=== PATIENT | female | born 1940 | race Caucasian/White ===

== ENCOUNTER 2018-06-26 07:15 | Inpatient (IN) | payer OTHER ==
[~2018-06-26] VITALS: Ht 152.4 cm; Wt 77.1 kg
[~2018-06-26 07:15] MED LIST: BENADRYL25 MG PO; CELEBREX100 MG PO; LYRICA50 MG PO; NORPRAMIN150 MG PO; OLEPTRO ER150 MG PO; SKELAXIN800 MG PO; SYNTHROID100 MCG PO; SYNTHROID75 MCG; TRAZODONE HCL50 MG
[2018-06-26] MEDS ORDERED: METROTEXATE PO (09:08)
[2018-07-06] MEDS ORDERED: METHOTREXATE2.5 MG PO (15:15)
== END 2018-07-07 16:55 | DRG 470 ==
LOC: SURH 07-04 07:15 → SURG 07-04 08:13 → O/R 07-04 08:13 → SURH 07-04 10:00 → SURG 07-04 15:43
PROVIDERS: Orthopaedic Surgery
PROC: 0SRB0JZ Replacement of Left Hip Joint with Synthetic Substitute, Open Approach (ICD-10-PCS; principal; 2018-07-04 10:00)
PROC: 0SSBXZZ Reposition Left Hip Joint, External Approach (ICD-10-PCS; 2018-07-06)
DX: M16.12 Unilateral primary osteoarthritis, left hip (principal); D62 Acute posthemorrhagic anemia; T84.021A Dislocation of internal left hip prosthesis, initial encounter; Y92.230 Patient room in hospital as the place of occurrence of the external cause; W18.39XA Other fall on same level, initial encounter; Y93.89 Activity, other specified; Y99.8 Other external cause status; E03.8 Other specified hypothyroidism; M06.89 Other specified rheumatoid arthritis, multiple sites

== ENCOUNTER 2018-07-19 13:23 | Outpatient (CLI) | payer OTHER ==
[~2018-07-19 13:23] MED LIST changes: +METHOTREXATE2.5 MG PO; +METROTEXATE PO
== END 2018-07-19 13:34 | disposition home or self-care (01) ==
LOC: TOM 13:23
DX: M21.764 Unequal limb length (acquired), left fibula (principal); M21.7 Unequal limb length (acquired)

== ENCOUNTER 2018-12-11 09:14 | Outpatient (CLI) | payer OTHER | END 2018-12-11 09:27 | disposition home or self-care (01) | LOC: RAD 501 09:14 | DX: M25.561 Pain in right knee (principal); M25.562 Pain in left knee; M05.79 Rheumatoid arthritis with rheumatoid factor of multiple sites without organ or systems involvement; M11.262 Other chondrocalcinosis, left knee; M11.261 Other chondrocalcinosis, right knee; Z96.651 Presence of right artificial knee joint ==

== ENCOUNTER 2019-01-01 13:46 | Inpatient (IN) | payer OTHER ==
[~2019-01-01] VITALS: Ht 152.4 cm; Wt 71.7 kg
--- NOTE | 2019-01-01 14:00 | NUR ---
SE REIBE PTE. FEMENINA EN AMBULANCIA QUE REFIERE SE DESLIZO EN [place]IAN [place] Y USHA SOBRE CADERA IZQUIERDA QUE YA HABIA SIDO OPERADA REF. NO PUEDE ESAR EN PIES SE UBICA EN SECCION K CAMA-[address] VALLEJO MEDICO EN TURNO.
[2019-01-04] MEDS ORDERED: Septra Ds Tablet PO (13:58)
[2019-01-04] MEDS ORDERED: ACETAMINOPHEN500 M1 PO (13:58)
== END 2019-01-04 18:51 | disposition home or self-care (01) | DRG 481 ==
LOC: ER 13:46 → SURG 19:01 → MEDJ 19:01 → SEC-K 19:53 → SURG 20:46
PROVIDERS: ADMIT Orthopaedic Surgery
PROC: 0SSB0ZZ Reposition Left Hip Joint, Open Approach (ICD-10-PCS; principal; 2019-01-02 14:00)
DX: S73.005A Unspecified dislocation of left hip, initial encounter (principal); N39.0 Urinary tract infection, site not specified; W01.0XXA Fall on same level from slipping, tripping and stumbling without subsequent striking against object, initial encounter; E11.9 Type 2 diabetes mellitus without complications; I10 Essential (primary) hypertension; E03.8 Other specified hypothyroidism

== ENCOUNTER 2019-04-08 06:02 | Day surgery (SDC) | payer OTHER ==
[~2019-04-08] VITALS: Ht 160 cm; Wt 71.2 kg
[~2019-04-08 06:02] MED LIST changes: +ACETAMINOPHEN500 M1 PO; +Septra Ds Tablet PO
--- NOTE | 2019-04-08 06:14 | NUR ---
PTE REFIERE QUE FUE A COJER KEVIN SABANA EN FLORIAN CAMA Y LE SALIO EL REMPLAZO DE CADERA IZQUIERDA.
--- NOTE | 2019-04-08 07:00 | NUR ---
SE RECOIBE DE TURNO ANTERIOR FEMINA DE 78 ANOS,ALERTA,[place] EN GIFTY ESFERAS,DESCANSANDO EN CAMA NIVEL MAS BAJO EN COMPANIA DE FAMILIARES.HE DE IDENTIFICACION,BARANDAS ELEVADAS, FRENOS COLOCADOS POR SEGURIDAD. SE OBSERVA BUEN PATRON RESPIRATORIO, PIEL TIBIA AL TACTO. SE CHRISTINE POACIENTE DESCANSANDO EN CAMA BAJO OBSERVACION.
--- NOTE | 2019-04-08 07:33 | NUR ---
SE ORIENTA A P T SOBRE ORDENES MEDICAS, REFIERE ENTENDER. SE LE INSERTA BARNHART # 16 BAJO MEDIDAS ESTERILES. PT TOLERA, SE MANTIENE BRONWYN A GRAVEDAD SIMON NIELSEN.
--- NOTE | 2019-04-08 09:35 | NUR ---
SE ORIENTA APT SOBRE PROCEDIMIENTO DE BOBBI DE OPERACIONES REFIERE ENTENDER. SE CANALIZA BAJO MEDIDAS ASEPTICAS PT TOLERA.
--- NOTE | 2019-04-08 15:17 | NUR ---
PTE ALERTA YY ORIENTADA X 3 ESFERAS SIN FAMILIAR AL MOMENTO SIN FAMILIAR AL MOMENTO DE LA RODNEY,PTE EN DAWSON CON BARANDAS ELEVADAS.AREA DE VENOPUNCION PATENTE Y ALLIE DE EDEMA CON FLUIDOS DE MANTENIMIENTO,CON BARNHART,PENDIENTE A EVALUACION DE DR PARISH.
--- NOTE | 2019-04-08 19:00 | NUR ---
SE ORIENTA PTE SOBRE RECOGIDO DE PERTENECIAS YA QU PTE SUBIRA A BOBBI Y REFIERE QUE SLY PERTENECIAS SUBIRA CON MEGAN POR DRA RAI QUIEN ES FLORIAN AMIGA SE QUEDARA CON ELLAS EN LO QUE LLEGA FLORIAN FAMILIAR.
== END 2019-04-08 13:00 | disposition home or self-care (01) ==
LOC: ER 06:02 → CIR.AMB 07:00 → ER 18:36 → SEC-K 18:36 → O/R 18:36 → EDSTATUS 19:30 → SEC-K 04-09 07:12 → O/R 04-09 07:12
DX: T84.020A Dislocation of internal right hip prosthesis, initial encounter (principal)

== ENCOUNTER 2019-08-25 12:08 | Emergency (ER) | payer OTHER ==
[~2019-08-25] VITALS: Ht 152.4 cm; Wt 68.0 kg
== END 2019-08-25 16:23 | disposition home or self-care (01) ==
LOC: ER 12:08
DX: M62.830 Muscle spasm of back (principal)

== ENCOUNTER 2021-02-25 09:43 | Outpatient (CLI) | payer OTHER ==
[2021-04-07] MEDS ORDERED: FENOFIBRATE40 MG PO (10:54)
== END 2021-02-25 09:50 | disposition home or self-care (01) ==
LOC: RAD 09:43
PROVIDERS: ATTEND Orthopaedic Surgery
DX: M05.79 Rheumatoid arthritis with rheumatoid factor of multiple sites without organ or systems involvement (principal); M25.571 Pain in right ankle and joints of right foot; M25.572 Pain in left ankle and joints of left foot

== ENCOUNTER 2021-02-25 11:10 | Outpatient (CLI) | payer OTHER | END 2021-02-25 11:11 | disposition home or self-care (01) | LOC: NUCLEAR 11:10 | PROVIDERS: ATTEND Internal Medicine | DX: M16.12 Unilateral primary osteoarthritis, left hip (principal); M05.79 Rheumatoid arthritis with rheumatoid factor of multiple sites without organ or systems involvement; M05.06 Felty's syndrome, knee; M05.1 Rheumatoid lung disease with rheumatoid arthritis; M79.7 Fibromyalgia; M81.0 Age-related osteoporosis without current pathological fracture ==

== ENCOUNTER 2021-03-14 13:32 | Emergency (ER) | payer OTHER ==
[~2021-03-14] VITALS: Ht 152.4 cm; Wt 77.1 kg
[2021-03-14] MEDS ORDERED: CELEBREX200MG PO (14:28)
[2021-03-14] MEDS ORDERED: RASUVO 7.57.5 MG/0.1 SUBCUTANEO (14:28)
[2021-04-07] MEDS ORDERED: FENOFIBRATE40 MG PO (10:54)
== END 2021-03-14 17:24 | disposition home or self-care (01) ==
LOC: ER 13:32
DX: M79.641 Pain in right hand (principal); T84.84XA Pain due to internal orthopedic prosthetic devices, implants and grafts, initial encounter

== ENCOUNTER 2021-04-14 06:29 | Day surgery (SDC) | payer OTHER ==
[~2021-04-14 06:29] MED LIST changes: +CELEBREX200MG PO; +FENOFIBRATE40 MG PO; +RASUVO 7.57.5 MG/0.1 SUBCUTANEO
== END 2021-04-14 22:00 | disposition home or self-care (01) ==
LOC: CIR.AMB 06:29
PROVIDERS: ATTEND Orthopaedic Surgery Hand Surgery
DX: M19.031 Primary osteoarthritis, right wrist (principal); Z20.822 Contact with and (suspected) exposure to COVID-19

== ENCOUNTER 2022-06-11 05:45 | Day surgery (SDC) | payer OTHER ==
[~2022-06-11] VITALS: Ht 152.4 cm; Wt 73.0 kg
== END 2022-06-11 11:15 | disposition home or self-care (01) ==
LOC: CIR.AMB 05:45
PROVIDERS: ATTEND Anesthesiology Pain Medicine
DX: M47.24 Other spondylosis with radiculopathy, thoracic region (principal); M51.34 Other intervertebral disc degeneration, thoracic region; M81.8 Other osteoporosis without current pathological fracture; M47.896 Other spondylosis, lumbar region; M96.1 Postlaminectomy syndrome, not elsewhere classified; E03.9 Hypothyroidism, unspecified; I10 Essential (primary) hypertension; I51.9 Heart disease, unspecified; M79.7 Fibromyalgia; Z88.8 Allergy status to other drugs, medicaments and biological substances; Z88.9 Allergy status to unspecified drugs, medicaments and biological substances; Z88.4 Allergy status to anesthetic agent; Z88.6 Allergy status to analgesic agent; Z88.5 Allergy status to narcotic agent

== ENCOUNTER 2023-03-21 08:28 | Emergency (ER) | payer OTHER ==
[~2023-03-21] VITALS: Ht 152.4 cm; Wt 74.8 kg
[2023-03-21] MEDS ORDERED: ECOTRIN81 MG (08:50)
[2023-03-21] MEDS ORDERED: PEPCID AC20 MG (08:50)
[2023-03-21] MEDS ORDERED: FOLIC ACID20 MG (08:50)
[2023-03-21] MEDS ORDERED: OMEGA-31000 MG (08:50)
[2023-03-21] MEDS ORDERED: VITAMIN B-121000 MC4 (08:50)
[2023-03-21] MEDS ORDERED: VITAMIN C500 M5 (08:51)
[2023-03-21] MEDS ORDERED: METOCARBAMOL (08:52)
[2023-03-21] MEDS ORDERED: BACTRIM DS TAB1 EACH PO (12:53)
== END 2023-03-21 13:26 | disposition home or self-care (01) ==
LOC: ER 08:28
DX: N39.0 Urinary tract infection, site not specified (principal); Z88.8 Allergy status to other drugs, medicaments and biological substances

== ENCOUNTER 2023-06-09 12:45 | Outpatient (CLI) | payer OTHER ==
[~2023-06-09 12:45] MED LIST changes: +BACTRIM DS TAB1 EACH PO; +ECOTRIN81 MG; +FOLIC ACID20 MG; +METOCARBAMOL; +OMEGA-31000 MG; +PEPCID AC20 MG; +VITAMIN B-121000 MC4; +VITAMIN C500 M5
== END 2023-06-09 12:50 | disposition home or self-care (01) ==
LOC: SONOGRAMA 12:45
PROVIDERS: ATTEND Urology
DX: R35.0 Frequency of micturition (principal)

== ENCOUNTER 2023-07-17 07:38 | Inpatient (IN) | payer OTHER ==
[~2023-07-17] VITALS: Ht 152.4 cm; Wt 73.5 kg
[2023-07-17 08:56] LABS: URINE APPEARANCE Clear; URINE BILIRRUBIN Negative (NEGATIVE); URINE BLOOD Negative; URINE COLOR Yellow; URINE GLUCOSE Negative (NEGATIVE); URINE LEUKOCYTE Negative; URINE NITRATE Negative; URINE PROTEIN Negative (NEGATIVE); URINE UROBILINOGEN 0.2 E.U./dl
[2023-07-17 09:04] LABS: URINE RBC 2.2 uL (0.0-20.8)
[2023-07-17 09:06] LABS: URINE BACTERIA 1.2 uL (0.0-1933); URINE EPITHELIAL CELLS 0.1 uL (0.0-38.8); URINE WBC 1.2 uL (0.0-23.2)
[2023-07-17 09:16] LABS: HEMATOCRIT 34.2 % (36.0-45.00); HEMOGLOBIN 11.7 g/dL (12.0-15.00); MEAN CELL VOLUME 104.6 fL (80.00-100.00); MEAN CORPUSCULAR HEMOGLOBIN 35.7 pg (27.00-32.0); MEAN CORPUSCULAR HGB CONC 34.4 g/dl (32.0-36.0); PLATELET COUNT 196 K/uL (150-450); RED BLOOD COUNT 3.27 M/uL (4.00-6.00); RED CELL DISTRIBUTION WIDTH 14.8 % (11.5-14.5)
[2023-07-17 09:20] LABS: CALCIUM 9.3 mg/dL (8.5-10.1); CREATININE SERUM 1.3 mg/dL (0.55-1.02); GFR 39.41; POTASSIUM 4.88 mEq/L (3.5-5.1)
[2023-07-17 09:42] LABS: INR 0.94; PARTIAL THROMBOPLASTIN TIME 26.5 SECONDS (22.0-34.0)
[2023-07-17 10:37] LABS: PROTHROMBIN TIME 9.9 SECONDS (9.0-11.5)
[2023-07-20] MEDS ORDERED: OXYBUTYNIN CHLO10 MG (12:04)
[2023-07-20] MEDS ORDERED: METHOCARBAMOL750 MG (12:04)
[2023-07-20] MEDS ORDERED: METHOTREXA25 MG/1 M5 (12:04)
[2023-07-20] MEDS ORDERED: ROSUVASTATIN CAL5 MG (12:05)
[2023-07-20] MEDS ORDERED: IRBESARTAN-HCT1 EACH (12:05)
[2023-07-20] MEDS ORDERED: OMEGA-3 ACID ETH1 GM (12:05)
[2023-07-20] MEDS ORDERED: LISINOPRIL10 MG (12:05)
== END 2023-07-20 19:48 | disposition home or self-care (01) | DRG 561 ==
LOC: ER 07:38 → SURH 19:51
PROVIDERS: General Practice; Orthopaedic Surgery; ADMIT Specialist; ATTEND Specialist
PROC: 0SWBXJZ Revision of Synthetic Substitute in Left Hip Joint, External Approach (ICD-10-PCS; principal; 2023-07-19 19:45)
DX: T84.021A Dislocation of internal left hip prosthesis, initial encounter (principal); Y92.9 Unspecified place or not applicable; Y79.8 Miscellaneous orthopedic devices associated with adverse incidents, not elsewhere classified

== ENCOUNTER 2023-09-06 10:17 | Inpatient (IN) | payer OTHER ==
[2023-08-24 10:49] LABS: PH,URINE 5.5 (5.0-8.0); URINE APPEARANCE Clear; URINE BILIRRUBIN Negative (NEGATIVE); URINE BLOOD Negative; URINE COLOR Yellow; URINE GLUCOSE Negative (NEGATIVE); URINE LEUKOCYTE Moderate; URINE NITRATE Negative; URINE PROTEIN Negative (NEGATIVE); URINE UROBILINOGEN 0.2 E.U./dl
[2023-08-24 10:53] LABS: HEMATOCRIT 34.8 % (36.0-45.00); HEMOGLOBIN 11.9 g/dL (12.0-15.00); MEAN CORPUSCULAR HEMOGLOBIN 36.2 pg (27.00-32.0); MEAN CORPUSCULAR HGB CONC 34.1 g/dl (32.0-36.0); PLATELET COUNT 230 K/uL (150-450); RED BLOOD COUNT 3.28 M/uL (4.00-6.00); RED CELL DISTRIBUTION WIDTH 14.9 % (11.5-14.5); URINE BACTERIA 89.4 uL (0.0-1933); URINE EPITHELIAL CELLS 7.1 uL (0.0-38.8); URINE RBC 10.9 uL (0.0-20.8); URINE WBC 38.3 uL (0.0-23.2)
[2023-08-24 11:53] LABS: INR 0.99; PARTIAL THROMBOPLASTIN TIME 26.5 SECONDS (22.0-34.0); PROTHROMBIN TIME 10.4 SECONDS (9.0-11.5)
[2023-08-24 12:01] LABS: ALBUMIN 3.7 gm/dL (3.4-5.0); BILIRUBIN TOTAL 0.65 mg/dL (0.3-1.2); CALCIUM 9.4 mg/dL (8.5-10.1); CREATININE SERUM 0.83 mg/dL (0.55-1.02); GFR 66.14; GLOBULINA 3.6 G/DL (2.4-3.5); POTASSIUM 3.92 mEq/L (3.5-5.1); TOTAL PROTEIN 7.3 gm/dL (6.4-8.2)
[~2023-09-06] VITALS: Ht 152.4 cm; Wt 71.7 kg
[~2023-09-06 10:17] MED LIST changes: +ACETAMINOPHEN650 M4 RC; +ACID CONTROLLER20 MG PO; +IRBESARTAN-HCT1 EACH; +LISINOPRIL10 MG; +METHOCARBAMOL750 MG; +METHOTREXA25 MG/1 M5; +METHOTREXATE; +OMEGA-3 ACID ETH1 GM; +OXYBUTYNIN CHLO10 MG; +ROSUVASTATIN CAL5 MG
[2023-09-07 07:27] LABS: HEMATOCRIT 32.4 % (36.0-45.00); HEMOGLOBIN 10.9 g/dL (12.0-15.00); MEAN CELL VOLUME 105.3 fL (80.00-100.00); MEAN CORPUSCULAR HEMOGLOBIN 35.4 pg (27.00-32.0); MEAN CORPUSCULAR HGB CONC 33.6 g/dl (32.0-36.0); PLATELET COUNT 171 K/uL (150-450); RED BLOOD COUNT 3.08 M/uL (4.00-6.00); RED CELL DISTRIBUTION WIDTH 14.5 % (11.5-14.5)
[2023-09-08 08:39] LABS: HEMATOCRIT 32.8 % (36.0-45.00); HEMOGLOBIN 11.1 g/dL (12.0-15.00); MEAN CORPUSCULAR HEMOGLOBIN 35.6 pg (27.00-32.0); MEAN CORPUSCULAR HGB CONC 33.9 g/dl (32.0-36.0); PLATELET COUNT 147 K/uL (150-450); RED BLOOD COUNT 3.12 M/uL (4.00-6.00); RED CELL DISTRIBUTION WIDTH 14.4 % (11.5-14.5)
[2023-09-08] MEDS ORDERED: NORFLEX100MG PO (12:25)
[2023-09-08] MEDS ORDERED: PAIN RELIEVER500 M2 PO (12:26)
[2023-09-08] MEDS ORDERED: GABAPENTIN100 MG PO (12:26)
[2023-09-08] MEDS ORDERED: XARELTO10 MG PO (12:26)
== END 2023-09-08 20:00 | disposition home or self-care (01) | DRG 470 ==
LOC: CIR.AMB 10:17 → O/R 17:16 → SURH 17:16 → SURG 17:17 → SURH 17:19 → CIR.AMB 19:15 → SURH 09-08 20:00
PROVIDERS: ADMIT Orthopaedic Surgery; ATTEND Orthopaedic Surgery
PROC: 0SRB0JZ Replacement of Left Hip Joint with Synthetic Substitute, Open Approach (ICD-10-PCS; principal; 2023-09-06 19:15)
DX: M16.12 Unilateral primary osteoarthritis, left hip (principal); D62 Acute posthemorrhagic anemia

== ENCOUNTER 2024-07-19 14:26 | Outpatient (CLI) | payer OTHER ==
[~2024-07-19 14:26] MED LIST changes: +GABAPENTIN100 MG PO; +NORFLEX100MG PO; +PAIN RELIEVER500 M2 PO; +XARELTO10 MG PO
== END 2024-07-19 14:38 | disposition home or self-care (01) ==
LOC: TOM 14:26
PROVIDERS: ATTEND Otolaryngology
DX: J32.0 Chronic maxillary sinusitis (principal); J34.2 Deviated nasal septum

== ENCOUNTER 2025-02-22 03:01 | Emergency (ER) | payer OTHER ==
[~2025-02-22] VITALS: Ht 152.4 cm; Wt 74.8 kg
[2025-02-22] MEDS ORDERED: TETANUS & DIPHTHERIA TOX,ADULT 0.5 ML VIAL IM STA (03:48)
[2025-02-22] MEDS ORDERED: CEFAZOLIN SODIUM 1,000 MG VIAL IM STA (03:48)
== END 2025-02-22 04:24 | disposition home or self-care (01) ==
LOC: ER 03:01
DX: S61.412A Laceration without foreign body of left hand, initial encounter (principal); W25.XXXA Contact with sharp glass, initial encounter; Y93.89 Activity, other specified; Y92.89 Other specified places as the place of occurrence of the external cause; Y99.8 Other external cause status; Z88.5 Allergy status to narcotic agent; Z88.9 Allergy status to unspecified drugs, medicaments and biological substances
CPT/HCPCS: 12042; 90471; 90714; 96372; 99282; J0690; J1670

== ENCOUNTER 2025-03-08 09:00 | Emergency (ER) | payer OTHER ==
[~2025-03-08] VITALS: Ht 152.4 cm; Wt 75.3 kg
[2025-03-08] MEDS ORDERED: ZYRTEC10 MG PO (09:12)
[2025-03-08] MEDS ORDERED: PEPCID AC20 MG PO (09:12)
[2025-03-08] MEDS ORDERED: TREXALL5 MG PO (09:13)
== END 2025-03-08 10:15 | disposition home or self-care (01) ==
LOC: ER 09:00
DX: Z48.02 Encounter for removal of sutures (principal); Z88.5 Allergy status to narcotic agent